=== PATIENT | male | born 1955 | race African-American/Black ===

== ENCOUNTER 2018-12-01 19:37 | Emergency (ER) | payer SELFPAY ==
--- NOTE | 2018-12-01 19:47 | PDOC ---
Rapid Medical Evaluation Time Seen by Provider: 12/01/18 19:45 Medical Evaluation: 12/01/18 19:45 Patient presents to the ER for R knee swelling for two days. Denies trauma. Exam: swelling to the R knee, able to flex and extend the R knee Orders: X-ray Pt to proceed to the ER for further evaluation Discharge Disposition - Diagnosis Knee swelling - Referrals - Patient Instructions - Post Discharge Activity
[2018-12-01 19:49] VITALS: BP 143/83; PULSE 66; TEMP 99; BMI 43.6
--- NOTE | 2018-12-01 20:27 | PDOC ---
History of Present Illness - General Chief Complaint: Edema Stated Complaint: SWELLING TO KNEE Time Seen by Provider: 12/01/18 19:45 - History of Present Illness Initial Comments: 12/01/18 20:26 63-year-old male presents for evaluation of atraumatic onset of right knee pain times one year Past History - Past Medical History Allergies/Adverse Reactions: Allergies Allergy/AdvReac Type Severity Reaction Status Date / Time No Known Allergies Allergy Verified 12/01/18 19:46 COPD: No HTN: Yes Hypercholesterolemia: Yes Other medical history: BPH - Suicide/Smoking/Psychosocial Hx Smoking History: Never smoked Review of Systems - Review of Systems Constitutional: No: Fever Musculoskeletal: Yes: Joint Pain *Physical Exam - Vital Signs Last Vital Signs Temp Pulse Resp BP Pulse Ox 99 F 66 18 143/83 99 12/01/18 19:46 12/01/18 19:46 12/01/18 19:46 12/01/18 19:46 12/01/18 19:46 - Physical Exam Comments: 12/01/18 20:24 Knee skin color and temperature are normal. There is no palpable effusion. Range of motion is decreased and painful. No medial or lateral joint line tenderness. + patellofemoral crepitation. No evidence of instability. Thigh and calf are soft and nontender. There are no gross sensory motor deficits. Medical Decision Making - Medical Decision Making 12/01/18 20:24 63-year-old male with atraumatic onset of right knee pain times one year x-ray show osteoarthritic changes with almost no joint space I will refer him to orthopedic surgery discussed use of Tylenol for pain. *DC/Admit/Observation/Transfer Diagnosis at time of Disposition: Knee swelling, Osteoarthritis, knee - Discharge Dispostion Disposition: HOME Condition at time of disposition: Stable Decision to Admit order: No - Referrals Referrals: Yonathan Swartz DO [Staff Physician] - - Patient Instructions Additional Instructions: Return to the emergency room for worsening symptoms. Tylenol as directed for pain. Without fail, follow-up with orthopedic surgery in 1-2 days for further evaluation and treatment options. - Post Discharge Activity
== END 2018-12-01 20:30 | disposition home or self-care (01) ==
LOC: JERFT 19:37
DX: M17.11 Unilateral primary osteoarthritis, right knee (principal)
CPT/HCPCS: 73562-TC-RT-FY; 99282-25